=== PATIENT | male | born 1975 | race Caucasian/White ===

== ENCOUNTER 2017-10-01 06:33 | Emergency (ER) | payer OTHER ==
[~2017-10-01] VITALS: Ht 182.9 cm; Wt 81.2 kg
[2017-10-01 08:16] LABS: BASOPHIL % 0.3 % (0-2); PLATELET COUNT 381 x10^3mcL (130-400); RED CELL DISTRIBUTION WIDTH 14.7 % (11.5-14.5)
[2017-10-01 09:06] LABS: CALCIUM 9.1 mg/dL (8.5-10.1); CARBON DIOXIDE 30.7 mmol/L (21-32); CHLORIDE SERUM 104 mmol/L (98-107); CREATININE SERUM 0.9 mg/dL (0.7-1.3); GFR1 > 60 mL/min; GLUCOSE SERUM 103 mg/dL (74-106); SODIUM SERUM 141 mmol/L (136-145)
[2017-10-01 09:09] LABS: ALBUMIN 3.6 g/dL (3.4-5.0); ALKALINE PHOSPHATASE 101 U/L (46-116); ALT/SGPT 23 U/L (16-63); AST/SGOT 14 U/L (15-37); BILIRUBIN TOTAL 0.4 mg/dL (0.20-1.00); TOTAL PROTEIN, SERUM 8.1 g/dL (6.4-8.2)
[2017-10-01 09:13] LABS: microscopic required? NO
[2017-10-01 09:22] LABS: urine erythrocyte NEGATIVE (NEGATIVE)
[2017-10-01 11:27] VITALS: BP 149/94
== END 2017-10-01 11:27 | disposition home or self-care (01) ==
LOC: ED 06:33
PROVIDERS: Emergency Medicine
DX: L03.115 Cellulitis of right lower limb (principal)
CPT/HCPCS: 82962; 83880; J0295; J3490; Q0092

== ENCOUNTER 2018-10-23 22:24 | Inpatient (IN) | payer SELFPAY ==
[~2018-10-23] VITALS: Ht 180.3 cm; Wt 79.4 kg
[2018-10-23 22:31] VITALS: Ht 180.3 cm; Wt 79.4 kg
[2018-10-23 23:11] LABS: BASOPHIL % 0.5 % (0-2)
--- NOTE | 2018-10-23 23:17 | NUR ---
PT IN ED FOR PRODUCTIVE COUGH WITH "NEON GREEN" SPUTUM X7-8 DAYS. PT AAO4, NO DISTRESS AT THIS TIME. CONNECTED TO FULL CM.
[2018-10-23 23:19] LABS: CARBON DIOXIDE 29.5 mmol/L (21-32); CHLORIDE SERUM 97 mmol/L (98-107); CREATININE SERUM 1.3 mg/dL (0.7-1.3); GFR1 > 60 mL/min; GLUCOSE SERUM 100 mg/dL (74-106); POTASSIUM SERUM 3.7 mmol/L (3.5-5.1); SODIUM SERUM 135 mmol/L (136-145)
[2018-10-23 23:20] LABS: PLATELET COUNT 510 x10^3mcL (130-400)
[2018-10-23 23:24] LABS: ALKALINE PHOSPHATASE 79 U/L (46-116); ALT/SGPT 17 U/L (16-63); AST/SGOT 5 U/L (15-37); BILIRUBIN TOTAL 0.27 mg/dL (0.20-1.00)
[2018-10-23 23:26] LABS: ALBUMIN 2.6 g/dL (3.4-5.0)
[2018-10-24 00:10] LABS: UA SPECIFIC GRAVITY 1.025 (1.005-1.035); microscopic required? YES; urine erythrocyte TRACE (NEGATIVE)
[2018-10-24 00:16] LABS: AMPHETAMINE QUAL UR POSITIVE (See below)
--- NOTE | 2018-10-24 00:36 | NUR ---
RESIDENT AT BEDSIDE TO SPEAK WITH PT. PT AAO4, NO DISTRESS.
--- NOTE | 2018-10-24 01:09 | NUR ---
PT IN POSITION OF COMFORT, RESP E/U, NO DISTRESS.
--- NOTE | 2018-10-24 01:15 | NUR ---
REPORT GIVEN TO JOSE MARTIN BELLA TO ASSUME CARE.
--- NOTE | 2018-10-24 01:30 | NUR ---
PT RECEIVED FROM THE ED VIA WHEELCHAIR, ACCOMPANIED BY THE RN. PT IS ALERT AND ORIENTED X4, CALM AND COOPERATIVE WITH CARE. PT IS AMBULATORY WITH NO ASSISTANCE. IV IN THE LAC [address] AND INFUSING ZITHROMAX AT 250 ML/HR, NO INFILTRATION OR PHELEBITIS NOTED. PT HAS HAS NO COMPLAINT OF PAIN AT THIS TIME. PT IS MED/SURG AND DENIES CHEST PAIN. PT DENIES DIZZINESS/VERTIGO, PT DENIES HEADACHE, PT STATES LAST BOWEL MOVEMENT WAS 10/23/18 AND WAS FORMED AND SOFT, BOWEL SOUNDS PRESENT AND ACTIVE IN ALL 4 QUADRANTS. ABDOMEN IS SOFT AND NON-TENDER, SKIN IS INTACT, RADIAL AND PEDAL PULSES PALPABLE AND MODERATE, GENERALIZED WEAKNESS NOTED, PT HAS CLEAR UPPER LOBES AND DIMINSIHED BILATERAL BASES, PT HAS NON-PRODUCTIVE COUGH NOTED, PT IS ON 97% O2 SATURATION ON ROOM AIR, EENT IS WNL, PT DENIES DIFFICULTY SWALLOWING. PT ORIENTED TO ROOM AND ENVIRONMENT, PT IS AWARE ON HOW TO USE THE CONTROLS AND USE THE CALL LIGHT TO MAKE NEEDS KNOWN, SAFETY AND COMFORT MEASURES MAINTAINED, BED IN LOWEST POSITION, CALL LIGHT WITHIN REACH.
[2018-10-24 01:44] VITALS: BP 123/69
[2018-10-24 03:00] VITALS: BP 123/69
--- NOTE | 2018-10-24 04:04 | NUR ---
PT IS RESTING IN BED WITH EYES CLOSED AT THIS TIME. NO ACUTE DISTRESS NOTED. PT HAS BEEN CALM AND COOPERATIVE WITH CARE. IV INFUSING AND INTACT, NO S/S OF INFILTRATION, NO S/S OF PAIN NOTED. SAFETY AND COMFORT MEASURES MAINTAINED, BED IN LOWEST POSITION, CALL LIGHT WITHIN REACH. WILL CONTINUE TO MONITOR AT THIS TIME.
--- NOTE | 2018-10-24 05:15 | NUR ---
PT HAS RESTED IN INTERMITTENT INTERVALS THROUGHOUT THE SHIFT. PT HAS BEEN ALERT AND ORIENTED X4, CALM AND COOPERATIVE WITH CARE. PT HAS NO COMPLAINT OF PAIN AT THIS TIME, NO SOB NOTED AT THIS TIME. PT HAS HAD A DRY NON PRODUCTIVE COUGH, PT IS ON ROOM AIR, IV INFUSING AND INTACT. SAFETY AND COMFORT MEASURES MAINTAINED, BED IN LOWEST POSITION, CALL LIGHT WITHIN REACH. WILL ENDORSE CONTINUITY OF CARE TO THE ONCOMING RN.
[2018-10-24 05:38] VITALS: BP 98/65
[2018-10-24 07:07] LABS: CALCIUM 8.2 mg/dL (8.5-10.1); CARBON DIOXIDE 24.6 mmol/L (21-32); CHLORIDE SERUM 104 mmol/L (98-107); GFR1 > 60 mL/min; GLUCOSE SERUM 100 mg/dL (74-106); MAGNESIUM 2.3 mg/dL (1.8-2.4); PHOSPHOROUS 4.2 mg/dL (2.5-4.9); SODIUM SERUM 138 mmol/L (136-145)
--- NOTE | 2018-10-24 07:20 | NUR ---
RECIEVED PT FROM ENVIRONMENTAL ENGINEERING PROFESSOR. ASSESSED AND DOCUMENTED. DENIES ANY PAIN THIS TIME. NO COUGH THIS TIME, ONLY OCCASIONAL COUGH. NO SOB NOTED. STABLE. SAFTEY PRECAUTIONS ARE IN PLACE. WILL MONITOR.
[2018-10-24 07:36] LABS: BASOPHIL % 0.3 % (0-2); PLATELET COUNT 394 x10^3mcL (130-400); RED CELL DISTRIBUTION WIDTH 13.9 % (11.5-14.5)
[2018-10-24 09:26] VITALS: BP 114/68
--- NOTE | 2018-10-24 14:00 | NUR ---
PT IS STABLE. DENIES PAIN. NO SOB NOTED.
[2018-10-24 17:41] VITALS: BP 105/66
--- NOTE | 2018-10-24 19:00 | NUR ---
RECEIVED PT FROM DAY SHIFT RN. PT IS ALERT AND ORIENTED TO PERSON PLACE TIME AND SITUATION. CURRENTLY RESTING IN BED AND ABLE TO FOLLOW COMMANDS. PT DENIES CHEST PAIN AND SHORTNESS OF BREATH AT THIS TIME. THERE ARE NO USE OF ACCESSORY MUSCLES OR LABORED BREATHING ON ROOM AIR. PT STATED HE FEELS OK AT THIS TIME. PT IS AMBULATORY BUT HAS GENERALIZED WEAKNESS. INTRUCTED THE PT TO CALL FOR ASSISTANCE WHEN ATTEMPTING TO AMBULATE. IV TO THE LAC 20G CDI AT THIS TIME. SAFETY MEASURES ARE IN PLACE. BED IS IN THE LOWEST POSITION. CALL LIGHT IS WITHIN REACH. WILL CONTINUE TO MONITOR.
--- NOTE | 2018-10-24 19:15 | NUR ---
PT RESTING IN BED COMFORTABLY. DENIES PAIN. NO SOB NOTED. GAVE REPORT TO ACCOUNTS RECEIVABLE ASSOCIATE.
[2018-10-24 21:01] VITALS: BP 100/60
--- NOTE | 2018-10-24 22:18 | NUR ---
PT PULLED OUT IV. 22G STARTED IN RFA. PT TOLERATED WELL.
--- NOTE | 2018-10-25 02:22 | NUR ---
PT RESTING IN BED. NO SIGNS OF DISTRESS NOTED AT THIS TIME. BREATHING IS EVEN AND UNLABORED. NO USE OF ACCESSORY MUSCLES.
--- NOTE | 2018-10-25 04:25 | NUR ---
PT RESTING IN BED WITH EYES CLOSED. NO DISTRESS NOTED. NO USE OF ACCESSORY MUSCLES OR LABORED BREATHING. WILL CONTINUE TO MONITOR.
[2018-10-25 05:56] VITALS: BP 96/64
[2018-10-25 06:13] LABS: RED CELL DISTRIBUTION WIDTH 13.8 % (11.5-14.5)
[2018-10-25 06:18] LABS: CALCIUM 8.8 mg/dL (8.5-10.1); CARBON DIOXIDE 23.3 mmol/L (21-32); CHLORIDE SERUM 103 mmol/L (98-107); CREATININE SERUM 0.9 mg/dL (0.7-1.3); GFR1 > 60 mL/min; GLUCOSE SERUM 227 mg/dL (74-106); POTASSIUM SERUM 4.3 mmol/L (3.5-5.1); SODIUM SERUM 137 mmol/L (136-145)
[2018-10-25 07:13] LABS: BASOPHIL % 0 % (0-2); PLATELET COUNT 483 x10^3mcL (130-400)
--- NOTE | 2018-10-25 07:40 | NUR ---
RECEIVED PT FROM REPERTOIRE MANAGER RN. Natan/AVIS. MED SURG. DENIES CHEST PAIN/PRESSURE. RESPIRATIONS EQUAL AND UNLABORED ON RA. PT C/O OF SOB ON AND OFF. PT DENIES SOB AT THIS TIME. PT STATES BREATHING TREATMENTS HAVE BEEN HELPING. PT DENIES ANY PAIN AT THIS TIME. IV TO RFA INFILTRATED. REMOVED IV. CATHETER INTACT. APPLIED ICE PACK AND ENCOURAGE PT TO KEEP RFA ELEVATED. WILL CONTINUE TO MONITOR. CALL LIGHT IN REACH. BED IN LOWEST POSITION.
[2018-10-25 08:12] VITALS: BP 118/64
--- NOTE | 2018-10-25 09:38 | NUR ---
PT IN BED RESTING. NO ACUTE RESP DISTRESS NOTED ON RA. PT DENIES ANY PAIN AT THIS TIME. PT REFUSED COLACE, PT STATES I DON'T THINK I NEED IT, I AM AFRAID TO GET DIARRHEA. GIVEN PO MEDS. TOLERATED WELL. RFA SWELLING NOTED, ENCOURAGED PT TO KEEP ARM ELEVATED AND WITH COLD COMPRESS. WILL CONTINUE TO MONITOR. CALL LIGHT IN REACH. BED IN LOWEST POSITION.
--- NOTE | 2018-10-25 11:27 | NUR ---
RECEIVED ORDERS TO D/C IV FLUIDS. IV SALINE LOCKED TO LFA. NO REDNESS OR SWELLING NOTED. WILL CONTINUE TO MONITOR.
--- NOTE | 2018-10-25 11:42 | NUR ---
PT IN BED RESTING. NO ACUTE RESP DISTRESS NOTED ON RA. IV FLUSHED WELL TO LFA. NO REDNESS OR SWELLING NOTED. PT DENIES ANY PAIN AT THIS TIME. WILL CONTINUE TO MONITOR. CALL LIGHT IN REACH. BED IN LOWEST POSITION.
[2018-10-25 12:58] VITALS: BP 118/64
--- NOTE | 2018-10-25 14:19 | NUR ---
PT SITTING UP IN BED. EATING LUNCH. NO ACUTE RESP DISTRESS NOTED ON RA. PT DENIES ANY PAIN AT THIS TIME. RESPIRATORY THERAPIST AT BEDSIDE FOR BREATHING TREATMENT. WILL CONTINUE TO MONITOR. CALL LIGHT IN REACH. BED IN LOWEST POSITION.
[2018-10-25] MEDS ORDERED: MEDDP PO (15:41)
[2018-10-25] MEDS ORDERED: ZIT250 PO (15:43)
[2018-10-25] MEDS ORDERED: PROAIR RES117 MCG/Ac IH (15:45)
--- NOTE | 2018-10-25 17:23 | NUR ---
PT SITITNG UP IN BED. PT GIVEN DISCHARGE INSTRUCTIONS. PT INSTRUCTED TO RETURN TO ER IF ANY WORSENING SYMPTOMS OF FEVER, SOB, WHEEZING, OR ASTHMA ATTACK UNRELEIVED BY INHALER. PT ENCOURAGED TO CONTINUE REGULAR DIET AND ACTIVITY TOLERATED. PT GIVEN PRESCRIPTION FOR MEDROL, ALBUTEROL AND AZITHROMYCIN. PT INSTRUCTED ON USE. PT INSTRUCTED TO TAKE PRESCRIPTION TO PHARMACY. PT GIVEN EDUCATION REGARDING UPPER RESPIRATORY INFECTIONS AND ASTHMA. PT VERBALIZED UNDERSTANDING. IV TO LFA REMOVED CATHETER INTACT. NO REDNESS OR SWELLING NOTED. PT INFORMED OF FOLLOW UP APPOINTMENT AND [facility] ON 11/08 AT 1530. ALL QUESTIONS AND CONCERNS ADDRESSED. NO PROBLEMS ENCOUNTERED. PT INSTRUCTED TO USE CALL LIGHT WHEN READY TO BE TAKEN OFF FLOOR.
== END 2018-10-25 18:06 | disposition home or self-care (01) | DRG 871 ==
LOC: ED 22:24 → MU 10-24 00:25
PROVIDERS: Emergency Medicine; Internal Medicine; ADMIT General Practice
DX: A41.9 Sepsis, unspecified organism (principal); J18.9 Pneumonia, unspecified organism; E43 Unspecified severe protein-calorie malnutrition; N39.0 Urinary tract infection, site not specified; F17.210 Nicotine dependence, cigarettes, uncomplicated; F15.90 Other stimulant use, unspecified, uncomplicated; Z68.25 Body mass index [BMI] 25.0-25.9, adult
CPT/HCPCS: G0378; J0456; J0696; J2920; J2930; J7030; J7060; J7620; Q0092